=== PATIENT | female | born 1975 | race Caucasian/White ===

== ENCOUNTER → 2016-12-16 | Outpatient (CLI) | payer BC | LOC: FIMAGING 07:58 | PROVIDERS: ATTEND Obstetrics & Gynecology | DX: O09.522 Supervision of elderly multigravida, second trimester (principal); O35.8XX0 Maternal care for other (suspected) fetal abnormality and damage, not applicable or unspecified; Z3A.21 21 weeks gestation of pregnancy ==

== ENCOUNTER → 2017-02-02 | Outpatient (CLI) | payer BC | LOC: FIMAGING 08:21 | PROVIDERS: ATTEND Radiology Diagnostic Radiology | DX: O22.03 Varicose veins of lower extremity in pregnancy, third trimester (principal); Z3A.28 28 weeks gestation of pregnancy ==

== ENCOUNTER → 2017-02-17 | Outpatient (CLI) | payer BC | LOC: FIMAGING 09:36 | PROVIDERS: ATTEND Obstetrics & Gynecology | DX: O09.523 Supervision of elderly multigravida, third trimester (principal); Z3A.30 30 weeks gestation of pregnancy ==

== ENCOUNTER 2017-04-26 17:00 | Inpatient (IN) | payer BC ==
[2017-04-27] MEDS ORDERED: OXYTOCIN/RINGERS LACTATE 1,000 ML IV PRN (06:31)
[2017-04-27] MEDS ORDERED: LR 1,000 ML IV PRN (06:31)
[2017-04-27] MEDS ORDERED: EPSOM SALT 454 GM TP PRN (06:31)
[2017-04-27] MEDS ORDERED: OLIVE OIL 118 ML BTL MISC PRN (06:31)
[2017-04-27] MEDS ORDERED: TERBUTALINE SULFATE 1 MG/ML VIAL IV PRN (06:31)
[2017-04-27] MEDS ORDERED: OLIVE OIL 118 ML BTL ONE (07:38)
[2017-04-27] MEDS ORDERED: TERBUTALINE SULFATE 1 MG/ML VIAL ONE (07:38)
[2017-04-27] MEDS ORDERED: LIDOCAINE 1% 300 MG/30 ML SDV ONE (07:38)
[2017-04-27] MEDS ORDERED: AMMONIA AROMATIC 1 EACH AMP IH ONE (07:38)
[2017-04-27] MEDS ORDERED: MISOPROSTOL 200 MCG TAB ONE (07:39)
[2017-04-27] MEDS ORDERED: OXYTOCIN 10 UNIT/ML VIAL ONE (07:39)
[2017-04-27 07:42] LABS: % IMMATURE GRANULYOCYTES 0.7 % (0.0-1.1); ABSOLUTE IMMATURE GRANULOCYTES 0.05 10^3/uL (0.00-0.10); ADD DIFF? NO; ADD MORPH? NO; ADD SCAN? NO; ATYPICAL LYMPHOCYTE FLAG 10 (0-99); FRAGMENT RBC FLAG 0 (0-99); HEMATOCRIT 38.2 % (38.0-47.0); HEMOGLOBIN 13.3 g/dL (12.6-16.3); LEFT SHIFT FLG 0 (0-99); LIPEMIA HEMOLYSIS FLAG 90 (0-99); MEAN CELL HEMOGLOBIN CONCENTR. 34.8 g/dL (32.4-36.7); MEAN PLATELET VOLUME 11.1 fL (8.7-11.7); PLATELET CLUMPS FLAG 10 (0-99); PLATELET COUNT 166 10^3/uL (150-400); RED BLOOD CELL COUNT 4.15 10^6/uL (4.18-5.33); RED CELL DISTRIBUTION WIDTH 12.8 % (11.5-15.2)
[2017-04-27] MEDS ORDERED: OXYTOCIN/LR *STANDARD DOSE PROTOCOL IV SCH (08:00)
--- NOTE | 2017-04-27 08:05 | OBPROG ---
OBG Labor Progress Note Assessment/Plan: Assessment: 42 y/o at 40+1 weeks admitted for IOL for AMA > 40 - Plan: 1) Labor IOL: Pitocin just getting started now. 2) status reassuring 3) GBS neg 4) Pain - no interventions desired at this time 04/27/17 08:03 Subjective: Pt has no complaints. Objective: 04/27/17 07:20 - SVE Dilation (cm): 2 Effacement (%): 50 Station: -2 [place] Current Contraction Pattern: Irregular FHR (bpm): 140 FHR Pattern Variability: Moderate FHR Category: 1 Oxytocin Orders Assessment - Pre-Induction/Augmentation Assessment Gestational Age: 40 week(s) and 1 day(s) ICD10 Worksheet Patient Problems: Problems Problem Status Onset AMA (advanced maternal age) multigravida 35+ Acute - ICD10 Problem Qualifiers (1) AMA (advanced maternal age) multigravida 35+ Qualifiers: Trimester: third trimester Qualified Code(s): O09.523 - Supervision of elderly multigravida, third trimester
--- NOTE | 2017-04-27 09:23 | OBPROG ---
OBG Labor Progress Note Assessment/Plan: Assessment: 42 y/o at 40+1 weeks admitted for IOL for AMA > 40 - Plan: 1) Labor IOL: AROM completed with clear fluid noted, will continue with pitocin 2) status reassuring 3) GBS neg 4) Pain - no interventions desired at this time 04/27/17 09:22 Subjective: No complaints Objective: 04/27/17 07:20 Patient ABO/Rh A POSITIVE 04/27/17 07:20 - SVE Dilation (cm): 3 Effacement (%): 75 Station: -2 [place] Current Contraction Pattern: Regular FHR (bpm): 140 FHR Pattern Variability: Moderate FHR Category: 1 Membranes: AROM Amniotic Fluid Color: Clear - Procedures Non-surgical Procedures: Amniotomy Oxytocin Orders Assessment - Pre-Induction/Augmentation Assessment Gestational Age: 40 week(s) and 1 day(s) ICD10 Worksheet Patient Problems: Problems Problem Status Onset AMA (advanced maternal age) multigravida 35+ Acute - ICD10 Problem Qualifiers (1) AMA (advanced maternal age) multigravida 35+ Qualifiers: Trimester: third trimester Qualified Code(s): O09.523 - Supervision of elderly multigravida, third trimester
[2017-04-27] MEDS ORDERED: SIMETHICONE 80 MG TAB CHEW PO PRN (14:05)
[2017-04-27] MEDS ORDERED: ACETAMINOPHEN 325 MG TAB PO PRN (14:05)
[2017-04-27] MEDS ORDERED: HYDROCORTISONE 0.5% CREAM TP PRN (14:05)
--- NOTE | 2017-04-27 14:10 | OBDEL ---
Info Type: Vaginal GBS+: No Indications for Delivery: Postterm Favorable Cervix (AMA > 40) Vaginal Delivery - Labor and Delivery Onset of Contractions Date: 04/27/17 Onset of Contractions Time: 10:30 Onset of Contractions Type: Induced Rupture of Membranes Date: 04/27/17 Rupture of Membranes Time: 09:15 Rupture of Membranes Type: Artificial Amniotic Fluid Color: Clear Dilation Complete Date: 04/27/17 Dilation Complete Time: 13:25 Placenta Delivery Date: 04/27/17 Placenta Delivery Time: 13:42 Total Hours of Labor: 3 Non-surgical Procedures: Amniotomy Laceration: 2nd Degree Repair: 2-0, Vicryl Vaginal Sponge Count Correct: Yes Vaginal Needle Count Correct: Yes Vaginal Sweep Performed: Yes EBL: 300 cc Delivery Events: Nuchal Cord Delivery Comment: Pt delivered quickly in the squatting position, per her wishes. head delivered, then there was not quick delivery of the shoulders. Patient was asked to lie on her back, then after repositioning, a nuchal cord was identified and reduced, and the baby delivered quickly. Delayed cord clamping x 2 minutes, then cord clamped and cut. Cord blood obtained for donation. Placenta delivered and intact. Uterus massaged and tone improved, clots removed from vaginal vault. 2nd degree midline laceration repaired and hemostatic. No immediate complications. Baby and patient in stable condition. - Medications Labor Augmentation/Induction Methods Used: Pitocin Labor Augmentation/Induction Indication: Medical (AMA > 40) [place] Data [place] Delivery Date: 04/27/17 Delivery Time: 13:28 ESTEBAN: 04/26/17 Gestational Age: 40 week(s) and 1 day(s) Sex of Infant: Male [place] Weight (gm): 4020 kg Score (1 Min): 8 Score (5 Min): 8 ICD10 Worksheet Patient Problems: Problems Problem Status Onset AMA (advanced maternal age) multigravida 35+ Acute (spontaneous vaginal delivery) Acute - ICD10 Problem Qualifiers (1) AMA (advanced maternal age) multigravida 35+ Qualifiers: Trimester: third trimester Qualified Code(s): O09.523 - Supervision of elderly multigravida, third trimester (2) (spontaneous vaginal delivery)
[2017-04-27] MEDS: IBUPROFEN 600 MG TAB PO PRN ×2 (14:13→20:18)
[2017-04-27] MEDS: HYDROCODONE/APAP 5/325 TAB PO PRN ×2 (19:28→23:34)
[2017-04-27] MEDS: DOCUSATE SODIUM 100 MG CAP PO PRN (19:28)
[2017-04-28] MEDS: IBUPROFEN 600 MG TAB PO PRN ×4 (02:08→22:33)
[2017-04-28] MEDS: HYDROCODONE/APAP 5/325 TAB PO PRN (03:43)
[2017-04-28] MEDS: DOCUSATE SODIUM 100 MG CAP PO PRN (08:20)
--- NOTE | 2017-04-28 08:42 | SOAPPROG ---
SOAP Progress Note Assessment/Plan: Assessment: 42 yo s/p , ppd 1, doing well. Plan: 04/28/17 08:40 Rh +, rubella immune. Routine care. Home tomorrow. Subjective: 42 yo s/p , ppd 1, doing well-pain well controlled. Objective: Vital Signs Temp Pulse Resp BP Pulse Ox 37.6 C 88 18 117/80 97 04/27/17 20:00 04/27/17 20:00 04/27/17 20:00 04/27/17 20:00 04/27/17 20:00 Laboratory Results 04/28/17 03:55 04/27/17 04/28/17 04/29/17 05:59 05:59 05:59 Output Total 250 Balance -250 Physical Exam - Physical Exam General Appearance: no apparent distress Respiratory: lungs clear Cardiac/Chest: regular rate, rhythm Abdomen: non-tender Skin: warm/dry Extremities: non-tender Neuro/Psych: oriented x 3 ICD10 Worksheet Patient Problems: Problems Problem Status Onset AMA (advanced maternal age) multigravida 35+ Acute (spontaneous vaginal delivery) Acute
[2017-04-28 21:15] VITALS: O2SAT 94
[2017-04-29] MEDS: IBUPROFEN 600 MG TAB PO PRN (05:55)
[2017-04-29 08:31] VITALS: BP 107/66; PULSE 78; RESP 14; TEMP 97.2
--- NOTE | 2017-04-29 08:38 | OBGCSDC ---
General Delivery Information - General Info : 4 Para: 4 Delivery Physician/CNM: Richa Ho Admission Date: 04/27/17 Labs: Patient ABO/Rh A POSITIVE 04/27/17 07:20 Hct 33.5 % (38.0-47.0) L 04/28/17 03:55 Vaginal - Diagnosis Labor: Induced Rupture of Membranes Type: Artificial Amniotic Fluid Color: Clear Laceration: 2nd Degree Repair: 2-0, Vicryl Delivery Events: Nuchal Cord - Operations/Procedures Non-surgical Procedures: Amniotomy L&D Analgesia/Anesthesia Type: Local - Hospital Course Antepartum: Uncomplicated 4th . IOL for AMA Intrapartum: Uncomplicated : Routine pp care. Home PPD#2. Rh pos, Rub imm - Delivery Type: Vaginal Non-surgical Procedures: Amniotomy EBL: 300 cc L&D Analgesia/Anesthesia Type: Local [place] Data [place] Delivery Date: 04/27/17 Delivery Time: 13:28 ESTEBAN: 04/26/17 Gestational Age: 40 week(s) and 3 day(s) Sex of Infant: Male Weight (gm): 4020 kg Score (1 Min): 8 Score (5 Min): 8 Discharge Information - Discharge Information Discharge Medications: Ibuprofen Condition: Good Instruction/Follow Up: Six Weeks Discharge Physician/CNM: Lesvia Moreno
[2017-04-29] MEDS: DOCUSATE SODIUM 100 MG CAP PO PRN (09:21)
== END 2017-04-29 12:30 | disposition home or self-care (01) | DRG 775 ==
LOC: FLD 04-27 06:06 → FOB 04-27 16:18
PROVIDERS: ADMIT Obstetrics & Gynecology; ATTEND Obstetrics & Gynecology
PROC: 10E0XZZ Delivery of Products of Conception, External Approach (ICD-10-PCS; principal; 2017-04-27)
PROC: 10907ZC Drainage of Amniotic Fluid, Therapeutic from Products of Conception, Via Natural or Artificial Opening (ICD-10-PCS; principal; 2017-04-27)
PROC: 3E033VJ Introduction of Other Hormone into Peripheral Vein, Percutaneous Approach (ICD-10-PCS; principal; 2017-04-27)
PROC: 0KQM0ZZ Repair Perineum Muscle, Open Approach (ICD-10-PCS; principal; 2017-04-27)
DX: O48.0 Post-term pregnancy (principal); Z37.0 Single live birth; O70.1 Second degree perineal laceration during delivery; Z3A.40 40 weeks gestation of pregnancy; O69.82X0 Labor and delivery complicated by other cord entanglement, without compression, not applicable or unspecified
CPT/HCPCS: J2590; J3105

== ENCOUNTER → 2017-05-21 | Outpatient (CLI) | payer BC | LOC: FLACT 10:57 | PROVIDERS: ATTEND Obstetrics & Gynecology | DX: O92.13 Cracked nipple associated with lactation (principal); O92.5 Suppressed lactation | CPT/HCPCS: G0463 ==

== ENCOUNTER → 2018-12-01 | Outpatient (CLI) | payer BC | LOC: FIMAGING 09:03 | PROVIDERS: ATTEND Radiology Diagnostic Radiology | DX: I83.93 Asymptomatic varicose veins of bilateral lower extremities (principal); I87.8 Other specified disorders of veins ==

== ENCOUNTER → 2019-02-16 | Outpatient (CLI) | payer BC | DX: Z12.31 Encounter for screening mammogram for malignant neoplasm of breast (principal); Z80.3 Family history of malignant neoplasm of breast ==

== ENCOUNTER 2019-02-25 07:41 | Day surgery (SDC) | payer BC ==
[2019-02-25] MEDS ORDERED: fentaNYL 100 MCG/2 ML INJ IVP PRN (07:46)
[2019-02-25] MEDS ORDERED: ceFAZolin 2 GM/DEXTROSE 100 ML IV ONE (07:46)
[2019-02-25] MEDS ORDERED: PROTAMINE SULFATE 50 MG/5 ML VIAL IVP PRN (07:46)
[2019-02-25] MEDS ORDERED: HEPARIN 10,000 UNIT/10 ML MDV (1,000 UNIT/ML) IVP PRN (07:46)
[2019-02-25] MEDS ORDERED: ONDANSETRON 4 MG/2 ML VIAL IVP ONE (07:46)
[2019-02-25] MEDS ORDERED: MEPERIDINE 25 MG/ML SYR IVP PRN (07:46)
[2019-02-25] MEDS ORDERED: NALOXONE HCL 0.4 MG/ML INJ IVP PRN (07:46)
[2019-02-25] MEDS ORDERED: GLUCAGON HCL 1 MG VIAL IVP PRN (07:46)
[2019-02-25] MEDS ORDERED: MIDAZOLAM 2 MG/2 ML VIAL IVP PRN (07:46)
[2019-02-25] MEDS ORDERED: ALTEPLASE 2 MG VIAL IVP PRN (07:46)
[2019-02-25] MEDS ORDERED: NS 1,000 ML IV ONE (07:46)
[2019-02-25] MEDS ORDERED: FLUMAZENIL 0.5 MG/5 ML MDV IVP PRN (07:46)
[2019-02-25] MEDS ORDERED: NA BICARBONATE 50 MEQ/50 ML VIAL ONE (08:22)
[2019-02-25] MEDS ORDERED: LIDO/EPI 1% **for epidural** 30 ML SDV ONE (08:22)
[2019-02-25] MEDS ORDERED: SODIUM TETRADECYL SULFATE 3% 2 ML VIAL IV ONE (08:22)
--- NOTE | 2019-02-25 09:14 | PDGENHP ---
History & Physical Chief Complaint: RT LEG PAIN AND SWELLING History of Present Illness: painful veins after 4 pregnancies. planning on having child number 5 Pertinent Past, Social, Family History: n/a Relevant Physical Exam: varicose veins on rt leg mapped out Cardiorespiratory Assessment: rrr, cta
--- NOTE | 2019-02-25 09:14 | PDPROPOC ---
Sedation Plan of Care Sedation Plan of Care: vital signs stable, mental status noted, patient educated of risks, benefits, alternatives, patient can tolerate sedation ASA Classification: ASA 1 Planned drugs: fentanyl, midazolam Mallampati Score: Class 1 Mallampati Reference Image: Patient passed 3-3-2 rule?: Yes
[2019-02-25] MEDS ORDERED: IBUPROFEN 200 MG TAB PO ONE (10:29)
[2019-02-25] MEDS ORDERED: HYDROCODONE/APAP 5/325 TAB PO PRN (10:29)
[2019-02-25] MEDS ORDERED: ONDANSETRON 4 MG/2 ML VIAL IVP PRN (10:29)
[2019-02-25] MEDS ORDERED: ONDANSETRON DISINTEGRATING 4 MG TAB PO PRN (10:29)
[2019-02-25] MEDS ORDERED: NS 1,000 ML IV SCH (10:30)
--- NOTE | 2019-02-25 10:30 | PDRADPN ---
Radiology Procedure Note Date of Procedure: 02/25/19 Radiologist: Nilsa Flaherty Anesthesia: IV Sedation Pre-op Diagnosis: LLE VARICOSE VEINS Post-op Diagnosis: SAME Indication: PAIN Procedure: PHLEBECTOMY, SCLEROTHERAPY, LASER Inf/Abcess present in the surg proc area at time of surgery?: No
[2019-02-25 13:43] VITALS: BP 117/58
== END 2019-02-25 14:55 | disposition home or self-care (01) ==
LOC: FIMAGING 07:41
PROVIDERS: ATTEND Radiology Diagnostic Radiology
DX: I83.811 Varicose veins of right lower extremity with pain (principal); I83.891 Varicose veins of right lower extremity with other complications
CPT/HCPCS: J0690; J2250; J2310; J3010

== ENCOUNTER → 2019-03-02 | Outpatient (CLI) | payer BC | LOC: FIMAGING 10:58 ==